=== PATIENT | female | born 1960 | race Caucasian/White ===

== ENCOUNTER 2020-08-04 09:13 | Emergency (ER) | payer OTHER ==
[~2020-08-04] VITALS: Ht 165.1 cm; Wt 96.6 kg
[~2020-08-04 09:13] MED LIST: LISINOPRIL10 MG PO; METFORMIN HCL1000 MG PO; PREVACID30 MG PO; TENORMIN50 MG PO
[2020-08-04] MEDS ORDERED: METFORMIN HCL500 MG PO (09:21)
[2020-08-04] MEDS ORDERED: PRAVASTATIN SOD20 MG PO (09:22)
[2020-08-04] MEDS ORDERED: TOPAMAX200 MG PO (09:22)
[2020-08-04] MEDS ORDERED: ZIPSOR25 MG PO (09:22)
[2020-08-04] MEDS ORDERED: NORFLEX100MG PO (11:40)
[2020-08-04] MEDS ORDERED: KETO10TA2 PO (11:40)
== END 2020-08-04 11:42 | disposition home or self-care (01) ==
LOC: ER 09:13
DX: S70.01XA Contusion of right hip, initial encounter (principal); S80.01XA Contusion of right knee, initial encounter; W18.39XA Other fall on same level, initial encounter; Y93.89 Activity, other specified; Y92.018 Other place in single-family (private) house as the place of occurrence of the external cause; Y99.8 Other external cause status

== ENCOUNTER 2022-12-08 17:03 | Emergency (ER) | payer OTHER ==
[~2022-12-08] VITALS: Ht 165.1 cm; Wt 98.0 kg
[~2022-12-08 17:03] MED LIST changes: +KETO10TA2 PO; +METFORMIN HCL500 MG PO; +NORFLEX100MG PO; +PRAVASTATIN SOD20 MG PO; +TOPAMAX200 MG PO; +ZIPSOR25 MG PO
[2022-12-08] MEDS ORDERED: TENORMIN25 MG (17:11)
[2022-12-08] MEDS ORDERED: [UNRECOGNIZED DRUG - OTHER] (17:11)
[2022-12-08] MEDS ORDERED: APLENZIN174 MG (17:12)
[2022-12-08] MEDS ORDERED: CHILDREN'S ASPI81 MG (17:12)
[2022-12-08] MEDS ORDERED: TOPAMAX15 MG PO (17:12)
[2022-12-08] MEDS ORDERED: EZALLOR SPRINKLE5 MG PO (17:12)
[2022-12-08] MEDS ORDERED: GLUMETZA500 MG (17:13)
[2022-12-08] MEDS ORDERED: RESTASIS (17:13)
[2022-12-08] MEDS ORDERED: HYDRODIURIL12.5 MG PO (17:13)
[2022-12-08] MEDS ORDERED: ZIPSOR25 MG (17:13)
== END 2022-12-08 20:19 | disposition home or self-care (01) ==
LOC: ER 17:03
PROVIDERS: Emergency Medicine
DX: N17.9 Acute kidney failure, unspecified (principal); R42 Dizziness and giddiness; I10 Essential (primary) hypertension; E11.9 Type 2 diabetes mellitus without complications; Z79.84 Long term (current) use of oral hypoglycemic drugs; Z91.018 Allergy to other foods; Z20.822 Contact with and (suspected) exposure to COVID-19